=== PATIENT | male | born 1995 | race Asian ===

== ENCOUNTER 2017-02-13 23:07 | Emergency (ER) | payer SELFPAY ==
[~2017-02-13] VITALS: Ht 185.4 cm; Wt 77.1 kg
[2017-02-13 23:20] VITALS: BP 146/82
[2017-02-13] MEDS ORDERED: Norco 5mg/325mg tab ORAL ONE (23:45)
[2017-02-14] MEDS ORDERED: IBUPROFEN600 MG ORAL (00:54)
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
[2017-02-14 01:00] VITALS: BP 146/82
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
== END 2017-02-14 01:00 | disposition home or self-care (01) ==
LOC: EMR 02-14 00:40
DX: S09.90XA Unspecified injury of head, initial encounter (principal); S01.81XA Laceration without foreign body of other part of head, initial encounter; V47.0XXA Car driver injured in collision with fixed or stationary object in nontraffic accident, initial encounter; Y93.9 Activity, unspecified; Y92.9 Unspecified place or not applicable
CPT/HCPCS: 70450; 70486